=== PATIENT | male | born 1950 | race Caucasian/White ===

== ENCOUNTER 2018-06-25 14:23 | Outpatient (CLI) | payer OTHER ==
[2018-06-25 15:05] LABS: eGFR (Non-African) 54
== END 2018-06-25 14:24 ==
LOC: LAB 14:23
PROVIDERS: ATTEND Nurse Practitioner Family
DX: I50.32 Chronic diastolic (congestive) heart failure (principal); M10.00 Idiopathic gout, unspecified site; E83.52 Hypercalcemia
CPT/HCPCS: 36415; 80048; 82330; 83880; 84550

== ENCOUNTER 2018-07-18 16:20 | Outpatient (CLI) | payer OTHER ==
[2018-07-18 17:15] LABS: eGFR (Non-African) 49
== END 2018-07-18 16:22 ==
LOC: LAB 16:20
PROVIDERS: ATTEND Nurse Practitioner Family
DX: N18.9 Chronic kidney disease, unspecified (principal)
CPT/HCPCS: 36415; 80053

== ENCOUNTER 2018-08-03 14:53 | Outpatient (CLI) | payer OTHER ==
[2018-08-03 15:33] LABS: eGFR (Non-African) > 60
== END 2018-08-03 14:55 ==
LOC: LAB 14:53
PROVIDERS: ATTEND Internal Medicine
DX: I50.32 Chronic diastolic (congestive) heart failure (principal)
CPT/HCPCS: 36415; 80048

== ENCOUNTER 2018-11-28 13:51 | Outpatient (CLI) | payer OTHER ==
--- NOTE | 2018-11-28 15:17 | Diagnostic Imaging Report ---
ROSIE CUELLO (PRODUCT EVANGELIST) - OP [facility] [address] [facility].[address] [id number] Report Submission Date: Nov 28, 2018 3:12:27 PM CDT Patient Study Name: AMANDA CARRILLO Date: Nov 28, 2018 2:02:04 PM CDT Modality Type: DX Gender: M Description: CHEST 2VIEW : 54 Institution: [facility] Physician: ROSIE CUELLO (CORRINA) - OP Exam: Chest two views. History: Left-sided pain. No previous studies are available for comparison. Lung pickard are well aerated without fabiana consolidation or effusion. Heart size is normal with atherosclerotic plaques seen in the aorta. Impression: No fabiana consolidation or effusion. Electronically signed on Nov 28, 2018 3:12:27 PM CDT by: Mik RICO
--- NOTE | 2018-11-28 15:19 | Diagnostic Imaging Report ---
ROSIE CUELLO (MANDARIN TEACHER) - OP [facility] [address] [facility].[address] [id number] Report Submission Date: Nov 28, 2018 3:14:28 PM CDT Patient Study Name: AMANDA CARRILLO Date: Nov 28, 2018 2:02:00 PM CDT Modality Type: DX Gender: M Description: RIBS UNILAT 2 VIEWS : 54 Institution: [facility] Physician: ROSIE CUELLO (CORRINA) - OP Exam: Right ribs. History: Pain after fall 9 days ago. AP and oblique views of the left hemithorax are submitted. A healing fracture to the lateral aspect of the left 11th rib is noted. No other signs of fracture or dislocation is identified. No signs of acute fracture or dislocation is seen. No pleural or periosteal reaction is identified. Impression: Healing fracture of the left 11th rib is noted. If indicated CT may be beneficial to further evaluate. Electronically signed on Nov 28, 2018 3:14:28 PM CDT by: Mik RICO
== END 2018-11-28 13:53 ==
LOC: RAD 13:51
PROVIDERS: ATTEND Nurse Practitioner Family
DX: R07.9 Chest pain, unspecified (principal); R07.81 Pleurodynia; W19.XXXA Unspecified fall, initial encounter
CPT/HCPCS: 71046; 71100

== ENCOUNTER 2018-12-22 07:35 | Outpatient (CLI) | payer OTHER | END 2018-12-22 07:38 | LOC: LAB 07:35 | PROVIDERS: ATTEND Nurse Practitioner Family | DX: I10 Essential (primary) hypertension (principal) | CPT/HCPCS: 82533 ==

== ENCOUNTER 2018-12-25 08:52 | Outpatient (CLI) | payer OTHER ==
[2018-12-25 09:27] LABS: BASOPHILS % 0.3 % (0.0-1.5); NEUTROPHILS # 4.3 # k/uL (1.4-7.7)
[2018-12-25 10:17] LABS: eGFR (Non-African) > 60
[2018-12-25 10:18] LABS: HDL 42 mg/dL (>40)
[2018-12-25 11:15] LABS: A1C 5.8 % (<5.7)
== END 2018-12-25 08:54 ==
LOC: LAB 08:52
PROVIDERS: ATTEND Nurse Practitioner Family
DX: Z12.5 Encounter for screening for malignant neoplasm of prostate (principal); E83.52 Hypercalcemia; I10 Essential (primary) hypertension; E78.2 Mixed hyperlipidemia; M10.00 Idiopathic gout, unspecified site; R73.9 Hyperglycemia, unspecified; R53.83 Other fatigue
CPT/HCPCS: 36415; 80053; 80061; 82088; 82330; 82533; 82652; 83036; 84153; 84155; 84165; 84244; 84439; 84443; 84550; 85025